=== PATIENT | female | born 1990 | race Caucasian/White ===

== ENCOUNTER 2017-05-22 11:08 | Emergency (ER) | payer MEDICAID ==
[~2017-05-22] VITALS: Ht 160 cm; Wt 48.0 kg
[~2017-05-22 11:08] MED LIST: IBUP-1542 PO; PREN1TAB62 PO
[2017-05-22 11:13] VITALS: Ht 160 cm; Wt 48.0 kg
--- NOTE | 2017-05-22 12:40 | RADRPT ---
PROCEDURE: Chest x-ray CLINICAL INDICATION: Chest pain TECHNIQUE: Chest single view COMPARISON: None FINDINGS: The heart is normal in size. The pulmonary vessels are normal in caliber. The lungs are clear. Th e costophrenic angles are sharp. The visualized bony thorax is unremarkable. IMPRESSION: No acute cardiopulmonary disease. No evidence of pneumothorax RPTAT: HH .Cyrus Batista MD, Date Time Electronically viewed and signed by .Cyrus Batista MD, on 05/22/2017 12:39 .W/
[2017-05-22 12:49] LABS: ADD SCAN DIFF NO
[2017-05-22 12:50] LABS: BASOPHILS % 0.4 % (0.0-2.0); EOSINOPHILS # 0.1 10^3/ul (0.0-0.5); EOSINOPHILS % 1.9 % (0.0-7.0); HEMATOCRIT 37.9 % (37.0-47.0); HEMOGLOBIN 13.2 g/dl (12.0-16.0); LYMPHOCYTES # 1.3 10^3/ul (0.8-2.9); LYMPHOCYTES % 23.4 % (15.0-51.0); MEAN CORPUSCULAR HEMOGLOBIN 31.3 pg (29.0-33.0); MEAN CORPUSCULAR HGB CONC 34.8 g/dl (32.0-37.0); MEAN CORPUSCULAR VOLUME 89.8 fl (82.0-101.0); MEAN PLATELET VOLUME 10.5 fl (7.4-10.4); MONOCYTE # 0.5 10^3/ul (0.3-0.9); MONOCYTES % 9.5 % (0.0-11.0); NEUTROPHIL # 3.5 10^3/ul (1.6-7.5); NEUTROPHILS % 64.4 % (39.0-77.0); PLATELET COUNT 246 10^3/UL (140-415); RED BLOOD COUNT 4.22 10^6/ul (4.20-5.40); RED CELL DISTRIBUTION WIDTH 12.6 % (11.5-14.5); WHITE BLOOD COUNT 5.4 10^3/ul (4.8-10.8)
[2017-05-22 13:11] LABS: INR 0.99; PROTIME 13.1 Sec (12.2-14.2)
[2017-05-22 13:13] LABS: ANION GAP 19 (8-16); BLOOD UREA NITROGEN 18 mg/dl (7-20); CARBON DIOXIDE 28 mmol/L (21-31); CHLORIDE 100 mmol/L (97-110); CREATININE 0.68 mg/dl (0.44-1.00); GLUCOSE 87 mg/dl (70-220); POTASSIUM 4.2 mmol/L (3.5-5.1); SODIUM 143 mmol/L (135-144)
[2017-05-22 13:24] LABS: ADD UMIC YES; UR ASCORBIC ACID NEGATIVE (NEGATIVE); UR BACTERIA FEW /HPF (NONE SEEN); UR BILIRUBIN (Dip) NEGATIVE (NEGATIVE); UR BLOOD (Dip) 1+ mg/dL (NEGATIVE); UR CLARITY CLEAR (CLEAR); UR COLOR YELLOW (YELLOW); UR GLUCOSE (Dip) NEGATIVE (NEGATIVE); UR KETONES (Dip) NEGATIVE (NEGATIVE); UR LEUKOCYTE ESTERASE (Dip) NEGATIVE Leu/ul (NEGATIVE); UR MUCUS FEW /HPF (NONE SEEN); UR NITRITE (Dip) NEGATIVE (NEGATIVE); UR RBC 1 /HPF (0-5); UR SPECIFIC GRAVITY (Dip) 1.021 (1.003-1.030); UR SQUAMOUS EPITHELIAL CELL FEW /HPF (FEW); UR TOTAL PROTEIN (Dip) NEGATIVE (NEGATIVE); UR UROBILINOGEN (Dip) NEGATIVE (NEGATIVE)
[2017-05-22 13:26] LABS: TROPONIN-I < 0.012 ng/ml (0.00-0.12)
--- NOTE | 2017-05-22 13:41 | ERA ---
ER Documentation Chief Complaint Date/Time DATE: 05/22/17 TIME: 13:34 Chief Complaint cwp several days HPI This is an otherwise healthy 26-year-old female with a chief complaint of chest pain and left arm pain 1-2 days. Patient does have a history of asthma. Patient states that the arm pain was mildly relieved with covering it with icy hot. Pt denies previous [place]/VTE, crushing-/squeezing-like CP, upper back pain, palpitations, aching arm pain/numbness, leg pain/swelling, fatigue, dyspnea, syncope, irregular heart beat, or epigastric pain. Patient also denies current chest pain, or any personal or family cardiac history. ROS All systems reviewed and are negative except as per history of present illness. Medications Home Meds Active Scripts Acetaminophen* (Tylenol*) 325 Mg Tablet, 1 TAB PO Q6 Y for PAIN AND OR ELEVATED TEMP, #20 TAB Prov:JACKSON FLORES PA-C 05/22/17 Ibuprofen* (Ibuprofen*) 600 Mg Tablet, 600 MG PO Q6, #20 TAB 0 Refills Prov:HUI STANLEY MD 10/23/16 Reported Medications Vit-Iron Fumarate-FA ( Vitamin Tablet) 1 Each Tablet, 1 TAB PO DAILY, TAB 07/29/16 Allergies Allergies: Coded Allergies: No Known Allergy (Unverified , 10/02/16) PMhx/Soc Medical and Surgical Hx: pt denies Medical Hx, pt denies Surgical Hx Hx Alcohol Use: Yes Hx Substance Use: No Hx Tobacco Use: No Smoking Status: Never smoker Physical Exam Vitals Physical Exam Const: Well-appearing well-developed 26-year-old female in no acute distress Head: Atraumatic Eyes: Normal Conjunctiva ENT: Normal External Ears, Nose and Mouth. Neck: Full range of motion..~ No meningismus. Resp: Clear to auscultation bilaterally Cardio: Nonreproducible chest pain. Regular rate and rhythm, no murmurs Abd: Soft, non tender, non distended. Normal bowel sounds Skin: No petechiae or rashes Back: No midline or flank tenderness Ext: No cyanosis, or edema Neur: Awake and alert Psych: Normal Mood and Affect Results 24 hrs Laboratory Tests Test 05/22/17 11:40 05/22/17 12:40 Urine Color YELLOW Urine Clarity CLEAR Urine pH 5.0 Urine Specific [place] 1.021 Urine Ketones NEGATIVEmg/dL Urine Nitrite NEGATIVEmg/dL Urine Bilirubin NEGATIVEmg/dL Urine Urobilinogen NEGATIVEmg/dL Urine Leukocyte Esterase NEGATIVELeu/ul Urine Microscopic RBC 1/HPF Urine Microscopic WBC 1/HPF Urine Squamous Epithelial Cells FEW/HPF Urine Bacteria FEW/HPF Urine Mucus FEW/HPF Urine Hemoglobin 1+mg/dL Urine Glucose NEGATIVEmg/dL Urine Total Protein NEGATIVEmg/dl White Blood Count 5.410^3/ul Red Blood Count 4.2210^6/ul Hemoglobin 13.2g/dl Hematocrit 37.9% Mean Corpuscular Volume 89.8fl Mean Corpuscular Hemoglobin 31.3pg Mean Corpuscular Hemoglobin Concent 34.8g/dl Red Cell Distribution Width 12.6% Platelet Count 56054^3/UL Mean Platelet Volume 10.5fl Neutrophils % 64.4% Lymphocytes % 23.4% Monocytes % 9.5% Eosinophils % 1.9% Basophils % 0.4% Nucleated Red Blood Cells % 0.0/100WBC Neutrophils # 3.510^3/ul Lymphocytes # 1.310^3/ul Monocytes # 0.510^3/ul Eosinophils # 0.110^3/ul Basophils # 0.010^3/ul Nucleated Red Blood Cells # 0.010^3/ul Prothrombin Time 13.1Sec Prothrombin Time Ratio 1.0 INR International Normalized Ratio 0.99 Activated Partial Thromboplast Time 31.0Sec Sodium Level 143mmol/L Potassium Level 4.2mmol/L Chloride Level 100mmol/L Carbon Dioxide Level 28mmol/L Anion Gap 19 Blood Urea Nitrogen 18mg/dl Creatinine 0.68mg/dl Glucose Level 87mg/dl Calcium Level 10.0mg/dl Troponin I < 0.012ng/ml Procedures/MDM This is a 26-year-old female presenting with chest pain. There is no exacerbating factors or relieving factors identified. Physical exam was largely unremarkable. Handgrip with Valsalva showed increase in the right but no other findings or murmurs were auscultated. An EKG was taken to assess the cardiac activity which was read by me as normal sinus rhythm with sinus arrhythmia, atrial enlargement with increased P waves in lead II, incomplete right bundle branch block, right superior axis deviation, no ST or T-wave abnormalities. My attending Dr. Weaver read the ECG as biatrial enlargement, normal sinus rhythm with sinus arrhythmia, incomplete right bundle branch block , right superior axis deviation, possible right ventricular hypertrophy. Urinalysis was obtained to rule out and referred pain from the tract. Urinary labs were unremarkable and test was negative. Labs were obtained to evaluate for cardiac pathologies and were largely unremarkable. Chest x-ray was taken which showed no cardiac enlargement. The chest x-ray was read by the radiologist given the following impression FINDINGS: The heart is normal in size. The pulmonary vessels are normal in caliber. The lungs are clear. The costophrenic angles are sharp. The visualized bony thorax is unremarkable. IMPRESSION: No acute cardiopulmonary disease. No evidence of pneumothorax Patient's most likely diagnosis at this time is atypical chest pain of unknown origin. I have spoken with my attending Dr. Weaver who agrees with the assessment and plan. I have spoke with the patients regarding their condition and future management. They have verbally responded that they understand their status and treatment plan. The patients vitals are stable, and their current condition is appropriate for discharge. The patient will be given discharge instructions with return precautions. Departure Diagnosis: Primary Impression: Atypical chest pain Condition: Stable Additional Instructions: Follow up with your PCP within the next 1-3 days for a more thorough evaluation and a possible referral to a specialist. Return the the emergency department immediately if symptoms worsen or change. If you have any questions regarding medications, ask your pharmacist or us before you leave. If any adverse reactions occur while taking your medications, discontinue the treatment and return to the emergency department immediately. Take your medications as directed, and complete the entire course of treatment. JACKSON FLORES PA-C May 22, 2017 13:41 directed, and complete the entire course of treatment. JACKSON FLORES PA-C May 22, 2017 13:41
[2017-05-22] MEDS ORDERED: ACET325T33 PO (14:31)
[2017-05-22 15:33] VITALS: BP 110/80; PULSE 68; RESP 18
== END 2017-05-22 15:34 | disposition home or self-care (01) ==
LOC: FTE 11:08
DX: R07.89 Other chest pain (principal)
CPT/HCPCS: 71010; 80048; 81001; 84484; 85025; 85610; 85730; 93005

== ENCOUNTER 2019-03-19 14:44 | Emergency (ER) | payer MEDICAID, OTHER ==
[~2019-03-19] VITALS: Ht 154.9 cm; Wt 50.0 kg
[~2019-03-19 14:44] MED LIST changes: +ACET325T33 PO
[2019-03-19 14:56] VITALS: BP 120/61; PULSE 84; RESP 18; Ht 154.9 cm; Wt 50.0 kg
[2019-03-19] MEDS ORDERED: D-ME473S2 PO (18:08)
--- NOTE | 2019-03-19 18:14 | ERD ---
ER Documentation Chief Complaint Chief Complaint pt is bib self with c/o cough for 3 days, noticed sputum pink today HPI 28-year-old healthy female with no reported past medical surgical history who presents with 3-day complaint of persistent cough. Cough has been mostly productive of white frothy sputum but today with a single episode of cough with a speckled tinge of blood. Reports subjective fevers and took ibuprofen around 11 PM last night, now patient afebrile with temp of 98.9. She otherwise denies shortness of breath, dyspnea, rhinorrhea, congestion, sinus pain, voice changes, nausea, vomiting, diarrhea, abdominal pain, urinary symptoms. ROS All systems reviewed and are negative except as per history of present illness. Medications Home Meds Active Scripts Dextromethorphan Hb-Promethazine Hcl* (Promethazine DM* Syrup) 473 Ml Syrup, 5 ML PO Q6 PRN for COUGH for 7 Days, ML Prov:CARMEN OLIVARES PA-C 03/19/19 Acetaminophen* (Tylenol*) 325 Mg Tablet, 1 TAB PO Q6 PRN for PAIN AND OR ELEVATED TEMP, #20 TAB Prov:JACKSON FLORES PA-C 05/22/17 Ibuprofen* (Ibuprofen*) 600 Mg Tablet, 600 MG PO Q6, #20 TAB 0 Refills Prov:HUI STANLEY MD 10/23/16 Reported Medications Vit-Iron Fumarate-FA ( Vitamin Tablet) 1 Each Tablet, 1 TAB PO DAILY, TAB 07/29/16 Allergies Allergies: Coded Allergies: No Known Allergy (Unverified , 10/02/16) PMhx/Soc Hx Alcohol Use: Yes Hx Substance Use: No Hx Tobacco Use: No FmHx Family History: No diabetes, No coronary disease, No other Physical Exam Vitals Vital Signs Date Temp Pulse Resp B/P (MAP) Pulse Ox O2 O2 Flow FiO2 Time Delivery Rate 03/19/19 98.9 84 18 120/61 98 14:56 (80) Physical Exam I have reviewed the triage vital signs. Const: Well nourished, well developed, appears stated age Eyes: PERRL, no conjunctival injection HENT: NCAT, Neck supple without meningismus CV: RRR, Warm, well-perfused extremities RESP: CTAB, Unlabored respiratory effort GI: soft, non-tender, non-distended, no masses MSK: No gross deformities appreciated Skin: Warm, dry. No rashes Neuro: grossly non focal Psych: Appropriate mood and affect. Procedures/MDM 28-year-old healthy female presents with 3 days of cough. Single episode of blood tinged cough. Otherwise without any concerning symptoms. Low suspicion for pneumonia, common cold, asthma, TB or any other etiology warranting further emergent evaluation and treatment. Unlikely pertussis, sinusitis or FB irritation/obstruction. Discharged with promethazine for symptomatic care. DISPOSITION PLAN: We discussed follow up with the patient's primary care doctor within 24 to 48 hours. Patient counseled regarding my diagnostic impression and care plan. Prior to discharge all questions answered. Pt agrees with treatment plan and understands strict return precautions. Precautionary instructions provided including instructions to return to the ER if not improving or for any worsening or changing symptoms or concerns. Disclaimer: Inadvertent spelling and grammatical errors are likely due to EHR/ dictation software use and do not reflect on the overall quality of patient care. Also, please note that the electronic time recorded on this note does not necessarily reflect the actual time of the patient encounter. Departure Diagnosis: Primary Impression: Cough Condition: Stable Referrals: [facility] YOU HAVE RECEIVED A MEDICAL SCREENING EXAM AND THE RESULTS INDICATE THAT YOU DO NOT HAVE A CONDITION THAT REQUIRES URGENT TREATMENT IN THE EMERGENCY DEPARTMENT. FURTHER EVALUATION AND TREATMENT OF YOUR CONDITION CAN WAIT UNTIL YOU ARE SEEN IN YOUR DOCTORS OFFICE WITHIN THE NEXT 1-2 DAYS. IT IS YOUR RESPONSIBILITY TO MAKE AN APPOINTMENT FOR FOLOW-UP CARE. IF YOU HAVE A PRIMARY DOCTOR --you should call your primary doctor and schedule an appointment IF YOU DO NOT HAVE A PRIMARY DOCTOR YOU CAN CALL OUR PHYSICIAN REFERRAL HOTLINE AT IF YOU CAN NOT AFFORD TO SEE A PHYSICIAN YOU CAN CHOSE FROM THE FOLLOWING [facility] [address] [facility] [address] [facility] [address] [facility] [address] [facility]. [facility] [address] [facility] [facility]. [address] Additional Instructions: Call your primary care doctor TOMORROW for an appointment during the next 2-3 days.See the doctor sooner or return here if your condition worsens before your appointment time. CARMEN OLIVARES PA-C March 19, 2019 18:14
== END 2019-03-19 19:10 | disposition home or self-care (01) ==
LOC: FTE 14:44
DX: R05 Cough (principal)
CPT/HCPCS: 99283